=== PATIENT | female | born 1985 | race American Indian/Alaskan Native ===

== ENCOUNTER 2019-02-14 11:52 | Outpatient (CLI) | payer OTHER ==
[2019-02-14 12:41] VITALS: BP 100/57
[2019-02-14 13:05] LABS: Bilirubin,Urine NEG (Negative); Blood,Urine NEG (Negative); Color,Urine Colorless (Yellow); Protein,Urine <15 mg/dL mg/dL (Negative); Urobilinogen,Urine < 2.0 mg/dL (<2.0)
== END 2019-02-14 14:43 | disposition home or self-care (01) ==
LOC: TRG 11:52
PROVIDERS: ATTEND Obstetrics & Gynecology
DX: O47.02 False labor before 37 completed weeks of gestation, second trimester (principal); Z3A.26 26 weeks gestation of pregnancy
CPT/HCPCS: 81001

== ENCOUNTER 2019-03-19 12:07 | Outpatient (CLI) | payer OTHER ==
[2019-03-19] MEDS ORDERED: LACTATED RINGERS 500 ML IV ONE (12:16)
[2019-03-19] MEDS ORDERED: LACTATED RINGERS 1,000 ML IV ONE (12:18)
[2019-03-19 13:18] VITALS: BP 99/56
[2019-03-19 13:54] LABS: Bacteria,Urine 1+ /HPF (Negative); Bilirubin,Urine NEG (Negative); Blood,Urine NEG (Negative); Color,Urine Colorless (Yellow); Protein,Urine <15 mg/dL mg/dL (Negative); Urobilinogen,Urine < 2.0 mg/dL (<2.0)
== END 2019-03-19 15:05 | disposition home or self-care (01) ==
LOC: TRG 12:07
PROVIDERS: ATTEND Obstetrics & Gynecology
DX: O62.9 Abnormality of forces of labor, unspecified (principal); O09.523 Supervision of elderly multigravida, third trimester; Z3A.31 31 weeks gestation of pregnancy
CPT/HCPCS: 81001; 87086; 96360; J7120

== ENCOUNTER 2019-05-10 06:57 | Inpatient (IN) | payer OTHER ==
[2019-05-10] MEDS ORDERED: ePHEDrine SULFATE 50 MG/1 ML INJ IV PRN (07:30)
[2019-05-10] MEDS ORDERED: TERBUTALINE 1 MG/1 ML INJ SUB-Q PRN (07:30)
[2019-05-10] MEDS ORDERED: LIDOCAINE (2%) 20 MG/1 ML VIAL 20 ML MDV INFILTRATI NR (07:30)
[2019-05-10] MEDS ORDERED: fentaNYL 100 MCG/2 ML INJ IV PRN (07:30)
[2019-05-10] MEDS ORDERED: TERBUTALINE 1 MG/1 ML INJ IVP PRN (07:30)
[2019-05-10] MEDS ORDERED: BUTORPHANOL 2 MG/1 ML INJ IV PRN (07:30)
--- NOTE | 2019-05-10 07:46 | History and Physical Report ---
History of Present Illness Date of examination: 05/10/19 Chief complaint: SROM at 530a History of present illness: Past History : 6 Term Births: 3 Premature Births: 0 Living Children: 3 Para: 3 Mult. Births: 0 Prev : 0 Prev. attempt? none Aborta: 2 Elect. Ab: 0 Spont. Ab: 2 Ectopics: 0 # 1 Delivery date: 06/12/2008 Weeks Gestation: 39 Delivery type: Hours of labor: 25 Anesthesia type: epidural Delivery location: [facility] Sex: Female weight: [id number] Name: Naiila # 2 Delivery date: 05/06/2010 Delivery type: SAB # 3 Delivery date: 03/31/2011 Delivery type: Vaginal Delivery location: [facility] Sex: female weight: 6.19 Name: franck Comments: none # 4 Delivery date: 11/02/2011 Weeks Gestation: 4 Delivery type: SAB Delivery location: [facility] # 5 Delivery date: 06/28/2014 Weeks Gestation: 40 Delivery type: Vaginal Delivery location: [facility] Infant Sex: female weight: 6.63 Past Medical History: Reviewed history from 09/19/2011 and no changes required: Recurrent Bartholins cyst Past Surgical History: Reviewed history from 09/19/2011 and no changes required: negative Past Medical History Abnormal PAP: negative HAYDE Exposure: negative Infertility: negative Uterine Anomaly: negative Uterine Surgery (not C/S): negative Other Gynecologic Problems: negative Family Hx: Family History of Hypertension- mother No Family History of Breast Cancer No Family History of Colon Cancer No Family History of Ovarvian Cancer No Family History of DVT/PE on OCP No Family History of Diabetes 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 of genital herpes: no Partner hx. of genital herpes: no Rash, Viral, or Febrile illness since last LMP? no Varicella/Chicken Pox Status: Previous Disease TB Risk: no Genetic History ADVANCED MATERNAL AGE Congenital Heart Defect: Mom: no Dad: no Maggi Disease: Mom: no Dad: no Thalassemia Mom: no Dad: no Neural Tube Defect Mom: no Dad: no Down's Syndrome Mom: no Dad: no Alfredo-Sachs Mom: no Dad: no Sickle Cell Disease/Trait Mom: yes Dad: no Comments: two children with trait Hemophilia Mom: no Dad: no Muscular Dystrophy Mom: no Dad: no Cystic Fibrosis Mom: no Dad: no [place] Chorea Mom: no Dad: no Mental Retardation Mom: no Dad: no Fragile X Mom: no Dad: no Other Genetic/Chromosomal Disorder Mom: no Dad: no Child w/other defect Mom: no Dad: no Enviromental Exposures Enviromental Exposures Reviewed Xray Exposure: no Medication, drug, or alcohol use since LMP: no Chemical/Other Exposure: no Exposure to Cat Liter: no Hx of Parvovirus (Fifth Disease): no Occupational Exposure to Children: none Active Medications (reviewed today): None Current Allergies (reviewed today): No known allergies Past History - Obstetrical History Expected Date of Delivery: 05/18/19 Actual Gestation: 38 Week(s) 6 Day(s) : 6 Medications and Allergies Allergies Allergy/AdvReac Type Severity Reaction Status Date / Time No Known Allergies Allergy Verified 02/14/19 11:58 Home Medications Medication Instructions Recorded Confirmed Last Taken Type No Known Home Medications [No 06/28/14 06/28/14 Unknown History Reported Home Medications] Active Meds: Active Medications Butorphanol Tartrate (Stadol) 2 mg IV Q2H PRN PRN Reason: Pain , Severe (7-10) Ephedrine Sulfate (Ephedrine Sulfate) 10 mg IV Q2M PRN PRN Reason: Hypotension Fentanyl (Sublimaze) 100 mcg IV Q2H PRN PRN Reason: Labor Pain Oxytocin/Sodium Chloride (Pitocin/Ns 20 Unit/1000ml Drip) 20 units in 1,000 mls @ 125 mls/hr IV DIRECT STU Oxytocin/Sodium Chloride (Pitocin/Ns 30 Unit/500ml) 30 units in 500 mls @ 1 mls/hr IV TITR STU; Protocol Oxytocin/Sodium Chloride (Pitocin/Ns 30 Unit/500ml) 30 units in 500 mls @ 4 mls/hr IV TITR STU; Protocol Lactated Ringer's (Lactated Ringers) 1,000 mls @ 125 mls/hr IV DIRECT STU Lidocaine (Xylocaine 2%) 20 ml INFILTRATI ONCE NR Stop: 05/10/19 13:00 Mineral Oil (Mineral Oil) 30 ml PO QHS PRN PRN Reason: Constipation Terbutaline Sulfate (Brethine) 0.25 mg SUB-Q ONCE PRN PRN Reason: Hyperstimulation/Hypertonicity Terbutaline Sulfate (Brethine) 0.25 mg IVP ONCE PRN PRN Reason: Hyperstimulation/Hypertonicity Review of Systems All systems: negative Genitourinary: leakage of fluid - Vital Signs Vital signs: Vital Signs Pulse BP 78 113/74 05/10/19 07:24 05/10/19 07:24 Temp Pulse Resp BP Pulse Ox 78 113/74 05/10/19 07:24 05/10/19 07:24 - Physical Exam Breasts: Positive: deferred Lungs: Positive: Normal air movement Abdomen: Positive: normal appearance, soft. Negative: tenderness Genitourinary (Female): Positive: normal external genitalia, normal perenium Vulva: both: normal Vagina: Positive: normal moisture, other (+pool per SSE) Extremities: Positive: normal. Negative: tenderness - Obstetrical FHR: category 2 FHR comments: suspicious decels Uterine Contraction Monitor Mode: External Cervical Dilatation: 2 Cervical Effacement Percentage: 30 station: -3 post soft, vtx Uterine Contraction Pattern: Irregular Results All other labs normal. Assessment and Plan - Patient Problems (1) 38 weeks gestation of Current Visit: Yes Status: Acute (2) SROM (spontaneous rupture of membranes) Current Visit: Yes Status: Acute Plan to address problem: Close observation, IVF hydration, pitocin if FHT's improve
[2019-05-10] MEDS ORDERED: OXYTOCIN DRIP 30 UNITS/500 ML BAG IV SCH ×2 (08:00)
[2019-05-10] MEDS ORDERED: OXYTOCIN 20 UNIT/1000ML DRIP 20 UNITS/1,000 ML BAG IV SCH ×3 (08:00→18:05)
[2019-05-10] MEDS ORDERED: LACTATED RINGERS 1,000 ML IV SCH ×2 (08:00→16:00)
[2019-05-10 08:22] LABS: Hematocrit 36.2 % (30.3-42.9); Hemoglobin 12.1 gm/dl (10.1-14.3); Mean Corpuscular HGB Conc 34 % (30-34); Mean Corpuscular Volume 84 fl (79-97); Platelet Count 167 K/mm3 (140-440); Red Blood Count 4.33 M/mm3 (3.65-5.03); Red Cell Distribution Width 17.2 % (13.2-15.2)
[2019-05-10] MEDS ORDERED: NITRAZINE (URINE TESTING PAPER) MC ONE (08:30)
[2019-05-10] MEDS ORDERED: SODIUM CHLORIDE 0.9% 1000 ML 1,000 ML IV ONE (13:00)
[2019-05-10] MEDS ORDERED: SODIUM CHLORIDE 0.9% 1000 ML 1,000 ML ONE (13:43)
--- NOTE | 2019-05-10 13:49 | Progress Note ---
Assessment and Plan - Patient Problems (1) 38 weeks gestation of Current Visit: Yes Status: Acute (2) SROM (spontaneous rupture of membranes) Current Visit: Yes Status: Acute Plan to address problem: Start amnioinfusion and observe closely Subjective - Subjective Date of service: 05/10/19 Interval history: Past History : 6 Term Births: 3 Premature Births: 0 Living Children: 3 Para: 3 Mult. Births: 0 Prev : 0 Prev. attempt? none Aborta: 2 Elect. Ab: 0 Spont. Ab: 2 Ectopics: 0 # 1 Delivery date: 06/12/2008 Weeks Gestation: 39 Delivery type: Hours of labor: 25 Anesthesia type: epidural Delivery location: [facility] Infant Sex: Female weight: [id number] Name: Naiila # 2 Delivery date: 05/06/2010 Delivery type: SAB # 3 Delivery date: 03/31/2011 Delivery type: Vaginal Delivery location: [facility] Sex: female weight: 6.19 Name: franck Comments: none # 4 Delivery date: 11/02/2011 Weeks Gestation: 4 Delivery type: SAB Delivery location: [facility] # 5 Delivery date: 06/28/2014 Weeks Gestation: 40 Delivery type: Vaginal Delivery location: [facility] Infant Sex: female weight: 6.63 Past Medical History: Reviewed history from 09/19/2011 and no changes required: Recurrent Bartholins cyst Past Surgical History: Reviewed history from 09/19/2011 and no changes required: negative Past Medical History Abnormal PAP: negative HAYDE Exposure: negative Infertility: negative Uterine Anomaly: negative Uterine Surgery (not C/S): negative Other Gynecologic Problems: negative Family Hx: Family History of Hypertension- mother No Family History of Breast Cancer No Family History of Colon Cancer No Family History of Ovarvian Cancer No Family History of DVT/PE on OCP No Family History of Diabetes 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 of genital herpes: no Partner hx. of genital herpes: no Rash, Viral, or Febrile illness since last LMP? no Varicella/Chicken Pox Status: Previous Disease TB Risk: no Genetic History ADVANCED MATERNAL AGE Congenital Heart Defect: Mom: no Dad: no Maggi Disease: Mom: no Dad: no Thalassemia Mom: no Dad: no Neural Tube Defect Mom: no Dad: no Down's Syndrome Mom: no Dad: no Alfredo-Sachs Mom: no Dad: no Sickle Cell Disease/Trait Mom: yes Dad: no Comments: two children with trait Hemophilia Mom: no Dad: no Muscular Dystrophy Mom: no Dad: no Cystic Fibrosis Mom: no Dad: no [place] Chorea Mom: no Dad: no Mental Retardation Mom: no Dad: no Fragile X Mom: no Dad: no Other Genetic/Chromosomal Disorder Mom: no Dad: no Child w/other defect Mom: no Dad: no Enviromental Exposures Enviromental Exposures Reviewed Xray Exposure: no Medication, drug, or alcohol use since LMP: no Chemical/Other Exposure: no Exposure to Cat Liter: no Hx of Parvovirus (Fifth Disease): no Occupational Exposure to Children: none Active Medications (reviewed today): None Current Allergies (reviewed today): No known allergies Patient reports: movement normal, contractions Objective - Vital Signs Vital Signs: Vital Signs - 12hr 05/10/19 05/10/19 05/10/19 07:24 07:48 10:01 Temperature 98.1 F Pulse Rate 78 78 67 Respiratory 16 Rate Blood Pressure 113/74 Blood Pressure 113/74 [Left] O2 Sat by Pulse 100 Oximetry 05/10/19 05/10/19 05/10/19 10:02 10:06 10:09 Temperature Pulse Rate 71 78 86 Respiratory Rate Blood Pressure 97/53 Blood Pressure [Left] O2 Sat by Pulse 82 L 100 Oximetry 05/10/19 05/10/19 05/10/19 10:11 10:16 10:21 Temperature Pulse Rate 82 75 72 Respiratory Rate Blood Pressure Blood Pressure [Left] O2 Sat by Pulse 100 100 100 Oximetry 05/10/19 05/10/19 05/10/19 10:26 10:31 10:36 Temperature Pulse Rate 64 77 66 Respiratory Rate Blood Pressure Blood Pressure [Left] O2 Sat by Pulse 100 100 100 Oximetry 05/10/19 05/10/19 05/10/19 10:41 10:45 10:50 Temperature Pulse Rate 65 72 94 H Respiratory Rate Blood Pressure Blood Pressure [Left] O2 Sat by Pulse 100 100 100 Oximetry 05/10/19 05/10/19 05/10/19 10:56 11:01 11:14 Temperature Pulse Rate 72 70 78 Respiratory Rate Blood Pressure Blood Pressure [Left] O2 Sat by Pulse 100 100 99 Oximetry 05/10/19 05/10/19 05/10/19 11:19 11:24 11:29 Temperature Pulse Rate 73 73 74 Respiratory Rate Blood Pressure Blood Pressure [Left] O2 Sat by Pulse 100 100 100 Oximetry 05/10/19 05/10/19 05/10/19 11:34 11:39 11:44 Temperature Pulse Rate 68 72 76 Respiratory Rate Blood Pressure Blood Pressure [Left] O2 Sat by Pulse 100 100 100 Oximetry 05/10/19 05/10/19 05/10/19 11:49 11:54 11:58 Temperature Pulse Rate 91 H 88 64 Respiratory Rate Blood Pressure Blood Pressure [Left] O2 Sat by Pulse 100 99 99 Oximetry 05/10/19 05/10/19 05/10/19 12:03 12:08 12:13 Temperature Pulse Rate 77 78 78 Respiratory Rate Blood Pressure Blood Pressure [Left] O2 Sat by Pulse 100 98 99 Oximetry 05/10/19 05/10/19 05/10/19 12:18 12:24 12:29 Temperature Pulse Rate 80 75 70 Respiratory Rate Blood Pressure Blood Pressure [Left] O2 Sat by Pulse 99 100 100 Oximetry 05/10/19 05/10/19 05/10/19 12:33 12:38 12:44 Temperature Pulse Rate 77 69 68 Respiratory Rate Blood Pressure Blood Pressure [Left] O2 Sat by Pulse 99 100 100 Oximetry 05/10/19 05/10/19 05/10/19 12:48 12:54 12:57 Temperature Pulse Rate 72 81 Respiratory Rate Blood Pressure Blood Pressure [Left] O2 Sat by Pulse 100 98 83 L Oximetry 05/10/19 05/10/19 05/10/19 12:59 13:03 13:08 Temperature Pulse Rate 77 74 78 Respiratory Rate Blood Pressure Blood Pressure [Left] O2 Sat by Pulse 99 100 99 Oximetry 05/10/19 05/10/19 05/10/19 13:13 13:18 13:23 Temperature Pulse Rate 80 80 69 Respiratory Rate Blood Pressure Blood Pressure [Left] O2 Sat by Pulse 100 100 100 Oximetry 05/10/19 05/10/19 05/10/19 13:28 13:33 13:38 Temperature Pulse Rate 71 74 67 Respiratory Rate Blood Pressure Blood Pressure [Left] O2 Sat by Pulse 99 99 100 Oximetry 05/10/19 13:43 Temperature Pulse Rate 66 Respiratory Rate Blood Pressure Blood Pressure [Left] O2 Sat by Pulse 100 Oximetry - Exam Breasts: deferred Cardiovascular: Regular rate Lungs: Normal air movement Abdomen: Present: soft. Absent: tenderness Vulva: both: normal Uterus: Present: fundal height above umbilicus. Absent: tenderness FHR: category 2 FHR comments: ISE and IUPC placed w/o difficulty, variables now noted, Uterine Contraction Monitor Mode: Internal Cervical Dilatation: 5 Cervical Effacement Percentage: 50 station: -2 Uterine Contraction Pattern: Regular Extremities: normal - Labs Labs: Abnormal Labs 05/10/19 08:00 RDW 17.2 H Laboratory Results - last 24 hr 05/10/19 05/10/19 05/10/19 08:00 08:00 08:00 WBC 7.0 RBC 4.33 Hgb 12.1 Hct 36.2 MCV 84 MCH 28 MCHC 34 RDW 17.2 H Plt Count 167 RPR Nonreactive Blood Type O POSITIVE Antibody Screen Negative
[2019-05-10] MEDS ORDERED: SODIUM CHLORIDE 0.9% IRR 500 ML BOTTLE IR ONE (13:51)
[2019-05-10] MEDS ORDERED: BUPIVACAINE/PF (0.25%) 2.5 MG/ML 10 ML VIAL INFILTRATI ONE (14:10)
[2019-05-10] MEDS ORDERED: ceFAZolin 1 GM VIAL ONE (14:30)
[2019-05-10] MEDS ORDERED: ePHEDrine SULFATE 50 MG/1 ML INJ ONE (14:31)
[2019-05-10] MEDS ORDERED: SODIUM CHLORIDE 0.9% IRR 1,500 ML BOTTLE IR ONE (14:35)
[2019-05-10] MEDS ORDERED: WATER FOR IRRIG STERILE 1,500 ML BOTTLE IR ONE (14:35)
[2019-05-10] MEDS ORDERED: ONDANSETRON 4 MG/2 ML INJ ONE (15:04)
[2019-05-10] MEDS ORDERED: METOCLOPRAMIDE 10 MG/2 ML INJ ONE (15:04)
[2019-05-10] MEDS ORDERED: OXYTOCIN 10 UNIT/1 ML INJ ONE (15:04)
[2019-05-10] MEDS ORDERED: diphenhydrAMINE 50 MG/ML VIAL ONE (15:05)
[2019-05-10] MEDS ORDERED: KETOROLAC 30 MG/1 ML INJ ONE (15:05)
[2019-05-10] MEDS ORDERED: HYDROmorphone 1 MG/1 ML INJ ONE (15:06)
[2019-05-10] MEDS ORDERED: LACTATED RINGERS 1,000 ML ONE (15:24)
[2019-05-10] MEDS ORDERED: BICITRA ORAL LIQD 30ML PO ONE (15:40)
[2019-05-10] MEDS ORDERED: METOCLOPRAMIDE 10 MG/2 ML INJ IV ONE (15:40)
[2019-05-10] MEDS ORDERED: FAMOTIDINE 20 MG/2 ML INJ IV ONE ×2 (15:40→15:41)
[2019-05-10] MEDS ORDERED: BICITRA ORAL LIQD 30ML ONE (15:41)
[2019-05-10] MEDS ORDERED: ceFAZolin/Water 2 GM/20 ML 2 GM/20 ML SYRINGE IV NR (16:00)
[2019-05-10] MEDS ORDERED: ONDANSETRON 4 MG/2 ML INJ IV PRN (16:29)
[2019-05-10] MEDS ORDERED: HYDROmorphone 1 MG/1 ML INJ IV PRN (16:29)
[2019-05-10] MEDS ORDERED: NALOXONE 0.4 MG/1 ML INJ IV PRN ×2 (16:29→18:05)
[2019-05-10] MEDS ORDERED: PROMETHAZINE 25 MG RECT SUPP PR PRN (16:29)
[2019-05-10] MEDS ORDERED: PROMETHAZINE 25 MG TAB PO PRN (16:29)
--- NOTE | 2019-05-10 16:31 | Anesthesia Day of Surgery ---
Anesthesia Day of Surgery - Day of Surgery Patient Examined: Yes Patient H&P Reviewed: Yes Patient is NPO: Yes
--- NOTE | 2019-05-10 16:32 | Anesthesia Consultation ---
Anesthesia Consult and Med Hx Date of service: 05/10/19 - Airway Anesthetic Teeth Evaluation: Good ROM Head & Neck: Adequate Mental/Hyoid Distance: Adequate Mallampati Class: Class II Intubation Access Assessment: Good - Pulmonary Exam CTA: Yes - Cardiac Exam Cardiac Exam: RRR - Pre-Operative Health Status ASA Pre-Surgery Classification: ASA2, Emergency Proposed Anesthetic Plan: Epidural, Spinal - Pulmonary Hx Asthma: No COPD: No Hx Pneumonia: No - Cardiovascular System Hx Hypertension: No - Central Nervous System Hx Seizures: No Hx Psychiatric Problems: No - Endocrine Hx Renal Disease: No Hx End Stage Renal Disease: No Hx Hypothyroidism: No Hx Hyperthyroidism: No - Hematic Hx Anemia: No Hx Sickle Cell Disease: No - Other Systems Hx Alcohol Use: No
--- NOTE | 2019-05-10 16:32 | Anesthesia Day of Surgery ---
Anesthesia Day of Surgery - Day of Surgery Patient Examined: Yes Patient H&P Reviewed: Yes Patient is NPO: Yes
--- NOTE | 2019-05-10 16:33 | Post Anesthesia Evaluation ---
- Post Anesthesia Evaluation Patient Participated: Yes Airway Patent: Yes Stable Respiratory Function: Yes Nausea/Vomiting: No Temp > 96.8F: Yes Pain Manageable: No Adequeate Hydration: Yes Anesthesia Complications: No Block Receding Appropriately: Yes Patient on Ventilator: No
[2019-05-10] MEDS: HYDROmorphone 1 MG/1 ML INJ IV PRN ×2 (16:43→17:00)
[2019-05-10] MEDS ORDERED: fentaNYL-BUPIV 2 MCG/ML-0.125% 200 MCG/100 ML BAG EPIDURAL SCH (17:00)
[2019-05-10] MEDS ORDERED: MORPHINE 2 MG/1 ML INJ IV PRN (18:05)
[2019-05-10] MEDS ORDERED: FLU VACC QUAD 2019-20 (3 YR UP)/PF 60 MCG/0.5 ML SYRINGE IM ONE (18:05)
[2019-05-10] MEDS ORDERED: LANOLIN/ZINC/DIMETHICONE (LANSINOH) 7 GM TP PRN (18:05)
[2019-05-10] MEDS ORDERED: WITCH HAZEL/ GLYCERIN PAD TP PRN (18:05)
[2019-05-10] MEDS ORDERED: D5W/LACTATED RINGERS 1,000 ML IV SCH (18:05)
[2019-05-10] MEDS: KETOROLAC 30 MG/1 ML INJ IV SCH (20:07)
[2019-05-10] MEDS: ceFAZolin/NS 1 GM/50 ML 1 GM/50 ML BAG IV SCH (20:09)
[2019-05-10] MEDS ORDERED: MINERAL OIL 30 ML ORAL LIQD PO PRN (22:00)
[2019-05-10] MEDS: MORPHINE 4 MG/1 ML INJ IV PRN (23:29)
--- NOTE | 2019-05-11 01:42 | Operative Report ---
PREOPERATIVE DIAGNOSES: Intrauterine at 38 weeks, nonreassuring heart rate tracing, spontaneous rupture of membranes, desires sterilization. POSTOPERATIVE DIAGNOSES: Intrauterine at 38 weeks, nonreassuring heart rate tracing, spontaneous rupture of membranes, desires sterilization. PROCEDURES: 1. Primary low transverse section. 2. Bilateral tubal ligation, modified Yue. SURGEON: Kenzie Mahoney MD NEUROLOGY DIRECTOR: ____, HEENA. ANESTHESIA: Spinal, epidural. COMPLICATIONS: None. ESTIMATED BLOOD LOSS: 800 mL. FINDINGS: Liveborn male infant, weight 6 pounds 11 ounces, Apgars 8 at 1 minute and 9 at 5 minutes, nuchal cord as well as body cord involving the foot. DESCRIPTION OF PROCEDURE: After risks, benefits, complications, consequence and alternatives to the procedure were discussed with the patient, she voiced understanding and desired to proceed. She was taken to the OR where spinal anesthesia was bolused. She was placed in the left lateral tilt position and prepped and draped in the usual sterile fashion. Once an appropriate level of timeout was performed, once an appropriate level of anesthesia was noted, a Pfannenstiel incision was made into the fascia, which was incised and extended in lateral direction. The overlying fascia was sharply dissected away from the underlying rectus muscle in superior and inferior direction. Midline was entered bluntly. The vesicouterine fold was incised with blunt dissection. Bladder flap was created. A transverse incision was made in the lower uterine segment and extended in a superolateral direction with finger fractionation. A small amount of clear fluid was noted. Infant was delivered from the cephalic position with spontaneous cry and excellent tone. Cord was doubly clamped and cut and the was given to the resuscitation team present. Placenta was manually extracted. The uterus was exteriorized and cleaned of any further products of conception or placental tissue. The incision was reapproximated using 0 Vicryl in a running interlocking stitch followed by further suture of 0 Vicryl in an imbricating fashion. Once hemostasis was noted, attention was turned to the adnexa. Once confirmation was obtained from the patient to proceed with sterilization, the right tube was grasped with a Sara clamp and elevated at the ampullary region. This loop of tube was doubly ligated and excised. Same procedure was performed on the left tube with hemostasis was noted. The uterus was allowed back in the pelvic cavity. The pelvis was irrigated with warm normal saline. Attention was turned to the segment of tube excised. Hemostasis was noted. Attention was then turned to the lower uterine segment where hemostasis was noted. Surgicel was placed as well as Interceed. Once hemostasis was noted, the rectus muscles were approximated using 0 Vicryl and interrupted 0 Vicryl x 4. Once hemostasis was noted, the fascia was reapproximated using 0 Vicryl in a simple running stitch. Once hemostasis was noted, the skin was reapproximated using 4-0 Vicryl in a subcuticular manner. The patient tolerated the procedure well and was taken to recovery room in stable condition. JOB# [id number] FRITZ/LEONARD
[2019-05-11] MEDS: KETOROLAC 30 MG/1 ML INJ IV SCH ×3 (02:09→18:23)
[2019-05-11] MEDS ORDERED: ceFAZolin/NS 1 GM/50 ML 1 GM/50 ML BAG IV SCH (04:00)
[2019-05-11] MEDS: ceFAZolin/NS 1 GM/50 ML 1 GM/50 ML BAG IV SCH (04:16)
[2019-05-11] MEDS: MORPHINE 4 MG/1 ML INJ IV PRN ×2 (05:39→22:18)
[2019-05-11 05:40] LABS: Hematocrit 26.6 % (30.3-42.9); Hemoglobin 8.9 gm/dl (10.1-14.3)
--- NOTE | 2019-05-11 10:15 | Progress Note ---
Assessment and Plan pt doing well, c/o pain when moving mostly on right side. VSSAF, H&H 8.9/26.6 anemia d/t acute blood loss, asymptomatic. lochia scant, fundus firm, dressing D&I. - Patient Problems (1) Anemia associated with acute blood loss Current Visit: Yes Status: Acute Plan to address problem: FE supplementation cont PNV (2) delivery delivered Current Visit: Yes Status: Acute Plan to address problem: continue postop pathway ISS encouraged advance in diet and activity as tolerated rn to remove dressing after shower this evening Subjective - Subjective Date of service: 05/11/19 Principal diagnosis: postop day #1 s/p primary c/s with tubal ligation Patient reports: appetite normal, pain well controlled, flatus, ambulating normally, no dizzy ambulation, no nauseated Brandon: doing well, nursing well Objective - Vital Signs Latest vital signs: Vital Signs Temp Pulse Resp BP BP Pulse Ox 05/11/19 07:50 98.7 F 90 20 101/63 101/63 97 05/11/19 06:09 18 05/11/19 05:39 18 05/11/19 05:08 98.4 F 86 20 91/47 94 05/11/19 02:39 18 05/11/19 00:37 97.9 F 82 18 93/51 97 05/10/19 23:59 18 05/10/19 23:29 20 05/10/19 20:37 18 05/10/19 20:36 97.4 F L 85 18 110/60 99 05/10/19 20:07 18 05/10/19 19:21 18 05/10/19 17:30 98.1 F 73 20 112/68 100 05/10/19 17:00 85 19 112/68 100 05/10/19 16:30 80 21 111/65 100 05/10/19 16:15 72 22 104/58 100 05/10/19 16:00 75 19 108/64 100 05/10/19 15:45 71 16 106/63 100 05/10/19 15:35 73 22 108/61 100 05/10/19 15:30 97.8 F 76 18 104/58 100 05/10/19 14:19 86 100 05/10/19 14:17 78 140/85 10/04/19 14:15 88 136/83 05/10/19 14:14 89 100 05/10/19 14:09 74 100 05/10/19 14:04 82 100 05/10/19 13:59 72 100 05/10/19 13:53 90 100 05/10/19 13:48 83 100 05/10/19 13:43 66 100 05/10/19 13:38 67 100 05/10/19 13:33 74 99 05/10/19 13:28 71 99 05/10/19 13:23 69 100 05/10/19 13:18 80 100 05/10/19 13:13 80 100 05/10/19 13:08 78 99 05/10/19 13:03 74 100 05/10/19 12:59 77 99 05/10/19 12:57 83 L 05/10/19 12:54 81 98 05/10/19 12:48 72 100 05/10/19 12:44 68 100 05/10/19 12:38 69 100 05/10/19 12:33 77 99 05/10/19 12:29 70 100 05/10/19 12:24 75 100 05/10/19 12:18 80 99 05/10/19 12:13 78 99 05/10/19 12:08 78 98 05/10/19 12:03 77 100 05/10/19 11:58 64 99 05/10/19 11:54 88 99 05/10/19 11:49 91 H 100 05/10/19 11:44 76 100 05/10/19 11:39 72 100 05/10/19 11:34 68 100 05/10/19 11:29 74 100 05/10/19 11:24 73 100 05/10/19 11:19 73 100 05/10/19 11:14 78 99 05/10/19 11:01 70 100 05/10/19 10:56 72 100 05/10/19 10:50 94 H 100 05/10/19 10:45 72 100 05/10/19 10:41 65 100 05/10/19 10:36 66 100 05/10/19 10:31 77 100 05/10/19 10:26 64 100 05/10/19 10:21 72 100 05/10/19 10:16 75 100 Intake and Output 05/10/19 05/11/19 05/11/19 23:59 07:59 15:59 Intake Total 490 360 Output Total 600 900 Balance -110 -540 Intake: IV 250 ANCEF/NS 1 GM/50 ML 1 gm 50 In 50 ml @ 100 mls/hr IV Q8H [facility] Rx#:[id number] Intake, Free Water 240 360 Output: Urine 600 900 Indwelling Catheter 900 Uretheral ([place]) 300 Other: Total, Output Amount 600 Estimated Blood Loss 800 - Exam Breasts: Present: normal, Cardiovascular: Present: Regular rate Lungs: Present: Clear to auscultation, Normal air movement Abdomen: Present: normal appearance, soft. Absent: distention, tenderness Vulva: both: normal Uterus: Present: normal, firm, fundal height at umbilicus Extremities: Present: normal Deep Tendon Reflex Grade: Normal +2 Incision: Present: normal, dry, dressed - Labs Labs: Abnormal lab results 05/11/19 Range/Units 04:02 Hgb 8.9 L D (10.1-14.3) gm/dl Hct 26.6 L D (30.3-42.9) %
[2019-05-11] MEDS ORDERED: TETANUS,DIPH,PERTUSS(ACELL) VACCINE 0.5 ML SYRINGE IM ONE (15:21)
[2019-05-11] MEDS: PRENATAL VIT27-FE FUMARATE-FOLIC ACID VIT TAB PO SCH (18:29)
[2019-05-11] MEDS: FERROUS SULFATE 325 MG TAB PO SCH (22:17)
[2019-05-12] MEDS: IBUPROFEN 800 MG TAB PO PRN ×4 (00:31→18:00)
[2019-05-12] MEDS: PRENATAL VIT27-FE FUMARATE-FOLIC ACID VIT TAB PO SCH (09:47)
[2019-05-12] MEDS: FERROUS SULFATE 325 MG TAB PO SCH ×2 (09:47→21:30)
--- NOTE | 2019-05-12 13:55 | Progress Note ---
Assessment and Plan patient resting, c/o incision pain with rising and walking. Pt encouraged to use pain medication as needed and to request medication from RN if pain is not well controlled. incision D&I. feeding well. pt requesting d/c home tomorrow. - Patient Problems (1) Anemia associated with acute blood loss Current Visit: Yes Status: Acute Plan to address problem: continue with FE and PNV monitor blood loss (2) delivery delivered Current Visit: Yes Status: Acute Plan to address problem: continue postop pathway anticipate d/c home tomorrow Subjective - Subjective Date of service: 05/12/19 Principal diagnosis: postop day #2 s/p primary c/s with tubal ligation Patient reports: appetite normal, voiding normally, pain well controlled, flatus, ambulating normally, no dizzy ambulation, no nauseated : doing well, nursing well Objective - Vital Signs Latest vital signs: Vital Signs Temp Pulse Resp BP Pulse Ox 05/12/19 07:40 98.3 F 82 18 98/62 98 05/11/19 23:27 98.9 F 100 H 20 101/54 97 05/11/19 15:58 98.7 F 100 H 20 97/54 100 Intake and Output 05/11/19 05/12/19 05/12/19 23:59 07:59 15:59 Intake Total 120 120 Output Total 600 Balance -480 120 Intake: Oral 120 Intake, Free Water 120 Output: Urine 600 Indwelling Catheter 300 Void 300 Other: Total, Intake Amount 120 Total, Output Amount 300 # Voids Void 1 1 - Exam Breasts: Present: normal, Cardiovascular: Present: Regular rate Lungs: Present: Clear to auscultation, Normal air movement Abdomen: Present: normal appearance, soft Vulva: both: normal Uterus: Present: normal, firm, fundal height at umbilicus Extremities: Present: normal Deep Tendon Reflex Grade: Normal +2 Incision: Present: normal, dry, intact
[2019-05-12] MEDS: MORPHINE 4 MG/1 ML INJ IV PRN (14:35)
[2019-05-12] MEDS: HYDROcodone/ACETAMINOPHEN 5-325 MG TAB PO PRN (19:50)
[2019-05-13] MEDS: IBUPROFEN 800 MG TAB PO PRN ×3 (00:28→12:07)
[2019-05-13] MEDS: HYDROcodone/ACETAMINOPHEN 5-325 MG TAB PO PRN ×3 (02:19→13:59)
--- NOTE | 2019-05-13 08:58 | Discharge Summary ---
Providers - Providers Date of Admission: 05/10/19 09:51 Date of discharge: 05/13/19 Attending physician: LILY ROOT 05/10/19 18:05 Consult to Split Leather Mosser [CONS] Routine Reason For Exam: Primary care physician: LILY ROOT Hospitalization Reason for admission: srom Condition: Good Pertinent studies: post delivery H&H 8.9/26.6, acute anemia from blood loss at delivery, patient is asymptomatic, Fe ordered Procedures: Primary c/s for intolerance to labor Hospital course: uncomplicated c/s and course Disposition: DC-01 TO HOME OR SELFCARE Core Measure Documentation - Palliative Care Palliative Care/ Comfort Measures: Not Applicable - Core Measures Any of the following diagnoses?: none Exam - Constitutional Vitals: Temp Pulse Resp BP Pulse Ox 98.4 F 98 H 18 101/62 100 05/13/19 00:25 05/13/19 00:25 05/13/19 06:59 05/13/19 00:25 05/13/19 00:25 General appearance: Present: no acute distress, well-nourished - EENT Eyes: Present: PERRL ENT: hearing intact, clear oral mucosa - Neck Neck: Present: supple, normal ROM - Respiratory Respiratory effort: normal Respiratory: bilateral: CTA - Cardiovascular Heart Sounds: Present: S1 & S2. Absent: rub, click - Extremities Extremities: pulses symmetrical, No edema Peripheral Pulses: within normal limits - Abdominal General gastrointestinal: Present: soft, non-tender, non-distended, normal bowel sounds Female genitourinary: Present: normal - Integumentary Integumentary: Present: clear, warm, dry - Musculoskeletal Musculoskeletal: gait normal, strength equal bilaterally - Psychiatric Psychiatric: appropriate mood/affect, intact judgment & insight - Neurologic Neurologic: CNII-XII intact, moves all extremities - Additional findings Additional findings: FF, ML, U/2, vaginal bleeding is small, patient denies any heavy bleeding or clots. Patient reports pain is well controlled. Incision is well approximated, healing well, no bleeding or drainage noted, no s/s infection. Encouraged pt to continue ambulation and use of IS, increase water intake. She denies any dizziness or feeling faint with ambulation or position changes. Plan Activity: advance as tolerated Diet: regular Wound: open to air, keep clean and dry Follow up with: LILY ROOT MD [Primary Care Provider] - 7 Days (Congratulations! Please call [phone] to schedule your post op incision check appointment in 1 week. Schedule your son's circumcision appointment in 1 week. Bring EMLA cream with you to his appointment. Call with any questions or concerns. ) Prescriptions: Docusate Sodium [Colace] 100 mg PO BID PRN #60 capsule PRN Reason: Constipation Lidocain2.5%/Prilocai2.5% [Emla] 5 gm TP ONCE #1 tube Ferrous Sulfate [Feosol 325 MG tab] 325 mg PO BID #60 tablet Ibuprofen [Motrin 800 MG tab] 800 mg PO TID PRN #30 tablet PRN Reason: Pain oxyCODONE /ACETAMINOPHEN [Percocet 5/325 mg] 1 - 2 tab PO Q6HR PRN #20 tablet PRN Reason: Pain
[2019-05-13] MEDS: PRENATAL VIT27-FE FUMARATE-FOLIC ACID VIT TAB PO SCH (09:21)
[2019-05-13] MEDS: FERROUS SULFATE 325 MG TAB PO SCH (09:21)
[2019-05-13 16:42] VITALS: BP 104/65
== END 2019-05-13 17:55 | disposition home or self-care (01) | DRG 784 ==
LOC: TRG 06:57 → LD 07:53 → TRG 09:50 → LD 09:51 → OB 18:11
PROVIDERS: ADMIT Obstetrics & Gynecology; ATTEND Obstetrics & Gynecology
PROC: 10D00Z1 Extraction of Products of Conception, Low, Open Approach (ICD-10-PCS; principal; 2019-05-10)
PROC: 0UB70ZZ Excision of Bilateral Fallopian Tubes, Open Approach (ICD-10-PCS; 2019-05-10)
PROC: 3E0E7KZ Introduction of Other Diagnostic Substance into Products of Conception, Via Natural or Artificial Opening (ICD-10-PCS; 2019-05-10)
PROC: 3E0234Z Introduction of Serum, Toxoid and Vaccine into Muscle, Percutaneous Approach (ICD-10-PCS; 2019-05-11)
DX: O76 Abnormality in fetal heart rate and rhythm complicating labor and delivery (principal); D62 Acute posthemorrhagic anemia; O99.02 Anemia complicating childbirth; Z3A.38 38 weeks gestation of pregnancy; Z37.0 Single live birth; Z23 Encounter for immunization; Z82.49 Family history of ischemic heart disease and other diseases of the circulatory system
CPT/HCPCS: 36415; 85014; 85018; 85027; 86592; 86850; 86900; 86901; 88302; 88307; 90686; G0378; A6250; C1765; J0690; J1170; J1200; J1885; J2270; J2405; J2590; J2765; J3010; J7030; J7120; J7121

== ENCOUNTER 2019-05-18 18:46 | Observation (INO) | payer OTHER ==
[2019-05-18] MEDS ORDERED: MAGNESIUM SULFATE 40GM/1000ML 40 GM/1,000 ML BAG IV SCH (19:00)
[2019-05-18] MEDS ORDERED: MAGNESIUM SULFATE 2 GM/50 ML BAG IV ONE (19:00)
[2019-05-18] MEDS ORDERED: LACTATED RINGERS 1,000 ML IV SCH (19:00)
--- NOTE | 2019-05-18 19:00 | History and Physical Report ---
History of Present Illness Date of examination: 05/18/19 Chief complaint: elevated BP's and edema History of present illness: Past History : 6 Term Births: 3 Premature Births: 0 Living Children: 3 Para: 3 Mult. Births: 0 Prev : 0 Prev. attempt? none Aborta: 2 Elect. Ab: 0 Spont. Ab: 2 Ectopics: 0 # 1 Delivery date: 06/12/2008 Weeks Gestation: 39 Delivery type: Hours of labor: 25 Anesthesia type: epidural Delivery location: [facility] Infant Sex: Female weight: [id number] Name: Naiila # 2 Delivery date: 05/06/2010 Delivery type: SAB # 3 Delivery date: 03/31/2011 Delivery type: Vaginal Delivery location: [facility] Sex: female weight: 6.19 Name: franck Comments: none # 4 Delivery date: 11/02/2011 Weeks Gestation: 4 Delivery type: SAB Delivery location: [facility] # 5 Delivery date: 06/28/2014 Weeks Gestation: 40 Delivery type: Vaginal Delivery location: [facility] Sex: female weight: 6.63 # 6 Date of Delivery: 05/10/2019 Delivery Type: Gestation Weeks: 38 Gender: male Weight: 6.69 lbs Comment: NRFHT's Past Medical History: Reviewed history from 09/19/2011 and no changes required: Recurrent Bartholins cyst Past Surgical History: Past Medical History Abnormal PAP: negative HAYDE Exposure: negative Infertility: negative Uterine Anomaly: negative Uterine Surgery (not C/S): negative Other Gynecologic Problems: negative Family Hx: Family History of Hypertension- mother No Family History of Breast Cancer No Family History of Colon Cancer No Family History of Ovarvian Cancer No Family History of DVT/PE on OCP No Family History of Diabetes 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 of genital herpes: no Partner hx. of genital herpes: no Rash, Viral, or Febrile illness since last LMP? no Varicella/Chicken Pox Status: Previous Disease TB Risk: no Genetic History ADVANCED MATERNAL AGE Congenital Heart Defect: Mom: no Dad: no Maggi Disease: Mom: no Dad: no Thalassemia Mom: no Dad: no Neural Tube Defect Mom: no Dad: no Down's Syndrome Mom: no Dad: no Alfredo-Sachs Mom: no Dad: no Sickle Cell Disease/Trait Mom: yes Dad: no Comments: two children with trait Hemophilia Mom: no Dad: no Muscular Dystrophy Mom: no Dad: no Cystic Fibrosis Mom: no Dad: no Tupman Chorea Mom: no Dad: no Mental Retardation Mom: no Dad: no Fragile X Mom: no Dad: no Other Genetic/Chromosomal Disorder Mom: no Dad: no Child w/other defect Mom: no Dad: no Enviromental Exposures Enviromental Exposures Reviewed Xray Exposure: no Medication, drug, or alcohol use since LMP: no Chemical/Other Exposure: no Exposure to Cat Liter: no Hx of Parvovirus (Fifth Disease): no Occupational Exposure to Children: none Active Medications (reviewed today): None Current Allergies (reviewed today): No known allergies Past History - Obstetrical History : 6 Medications and Allergies Allergies Allergy/AdvReac Type Severity Reaction Status Date / Time No Known Allergies Allergy Verified 02/14/19 11:58 Home Medications Medication Instructions Recorded Confirmed Last Taken Type Ibuprofen [Motrin 800 MG tab] 800 mg PO TID PRN #30 tablet 05/10/19 Unknown Rx Lidocain2.5%/Prilocai2.5% [Emla] 5 gm TP ONCE #1 tube 05/10/19 Unknown Rx Vitamin 1 tab PO DAILY 05/10/19 05/10/19 05/09/19 10:00 History oxyCODONE /ACETAMINOPHEN [Percocet 1 - 2 tab PO Q6HR PRN #20 tablet 05/10/19 Unknown Rx 5/325 mg] Docusate Sodium [Colace] 100 mg PO BID PRN #60 capsule 05/13/19 Unknown Rx Ferrous Sulfate [Feosol 325 MG tab] 325 mg PO BID #60 tablet 05/13/19 Unknown Rx - Physical Exam Breasts: Positive: deferred Cardiovascular: Regular rate Lungs: Positive: Clear to auscultation, Normal air movement Abdomen: Positive: normal appearance, soft, normal bowel sounds, other (Incision: c/d/i/). Negative: distention Uterus: Negative: tender Extremities: Positive: edema (2+) Deep Tendon Reflex Grade: Normal but brisk +3 (no clonus) Results Result Diagrams: 05/18/19 19:51 05/18/19 19:51 All other labs normal. Assessment and Plan - Patient Problems (1) Gestational hypertension Current Visit: Yes Status: Acute Plan to address problem: Intermittent SMITH, resolved with ibuprofen Plan of care explained, questions answered, she voiced understanding and agrees with plan of care
[2019-05-18] MEDS ORDERED: MAGNESIUM SULFATE 4 GM/100 ML BAG IV ONE (20:00)
[2019-05-18 20:25] LABS: Hematocrit 31.5 % (30.3-42.9); Hemoglobin 10.4 gm/dl (10.1-14.3); Mean Corpuscular HGB Conc 33 % (30-34); Mean Corpuscular Volume 84 fl (79-97); Platelet Count 305 K/mm3 (140-440); Red Blood Count 3.74 M/mm3 (3.65-5.03); Red Cell Distribution Width 16.4 % (13.2-15.2)
[2019-05-18 20:34] LABS: Alanine Aminotransferase 10 units/L (7-56); Uric Acid 6.3 mg/dL (3.5-7.6)
[2019-05-18 21:49] LABS: Bilirubin,Urine NEG (Negative); Blood,Urine NEG (Negative); Color,Urine Straw (Yellow); Mucus,Urine FEW /HPF; Protein,Urine <15 mg/dL mg/dL (Negative); Urobilinogen,Urine < 2.0 mg/dL (<2.0); WBC,Urine < 1.0 /HPF (0.0-6.0)
[2019-05-19] MEDS ORDERED: KETOROLAC 30 MG/1 ML INJ ONE ×2 (03:47→10:47)
[2019-05-19] MEDS ORDERED: ACETAMINOPHEN 500 MG TAB PO ONE (03:55)
[2019-05-19] MEDS ORDERED: IBUPROFEN 800 MG TAB PO ONE (05:52)
[2019-05-19] MEDS ORDERED: KETAMINE/STERILE WATER 50 MG/ML SYRINGE ONE (10:46)
--- NOTE | 2019-05-19 10:52 | Progress Note ---
Assessment and Plan Patient resting in bed, complaints - Patient Problems (1) Gestational hypertension Current Visit: Yes Status: Acute Subjective - Subjective Date of service: 05/19/19 Principal diagnosis: PP GHTN Interval history: Past History : 6 Term Births: 3 Premature Births: 0 Living Children: 3 Para: 3 Mult. Births: 0 Prev : 0 Prev. attempt? none Aborta: 2 Elect. Ab: 0 Spont. Ab: 2 Ectopics: 0 # 1 Delivery date: 06/12/2008 Weeks Gestation: 39 Delivery type: Hours of labor: 25 Anesthesia type: epidural Delivery location: [facility] Infant Sex: Female weight: [id number] Name: Naiila # 2 Delivery date: 05/06/2010 Delivery type: SAB # 3 Delivery date: 03/31/2011 Delivery type: Vaginal Delivery location: [facility] Sex: female weight: 6.19 Name: franck Comments: none # 4 Delivery date: 11/02/2011 Weeks Gestation: 4 Delivery type: SAB Delivery location: [facility] # 5 Delivery date: 06/28/2014 Weeks Gestation: 40 Delivery type: Vaginal Delivery location: [facility] Infant Sex: female weight: 6.63 # 6 Date of Delivery: 05/10/2019 Delivery Type: Gestation Weeks: 38 Gender: male Weight: 6.69 lbs Comment: NRFHT's Past Medical History: Reviewed history from 09/19/2011 and no changes required: Recurrent Bartholins cyst Past Surgical History: Past Medical History Abnormal PAP: negative HAYDE Exposure: negative Infertility: negative Uterine Anomaly: negative Uterine Surgery (not C/S): negative Other Gynecologic Problems: negative Family Hx: Family History of Hypertension- mother No Family History of Breast Cancer No Family History of Colon Cancer No Family History of Ovarvian Cancer No Family History of DVT/PE on OCP No Family History of Diabetes 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 of genital herpes: no Partner hx. of genital herpes: no Rash, Viral, or Febrile illness since last LMP? no Varicella/Chicken Pox Status: Previous Disease TB Risk: no Genetic History ADVANCED MATERNAL AGE Congenital Heart Defect: Mom: no Dad: no Maggi Disease: Mom: no Dad: no Thalassemia Mom: no Dad: no Neural Tube Defect Mom: no Dad: no Down's Syndrome Mom: no Dad: no Alfredo-Sachs Mom: no Dad: no Sickle Cell Disease/Trait Mom: yes Dad: no Comments: two children with trait Hemophilia Mom: no Dad: no Muscular Dystrophy Mom: no Dad: no Cystic Fibrosis Mom: no Dad: no Antolin Chorea Mom: no Dad: no Mental Retardation Mom: no Dad: no Fragile X Mom: no Dad: no Other Genetic/Chromosomal Disorder Mom: no Dad: no Child w/other defect Mom: no Dad: no Enviromental Exposures Enviromental Exposures Reviewed Xray Exposure: no Medication, drug, or alcohol use since LMP: no Chemical/Other Exposure: no Exposure to Cat Liter: no Hx of Parvovirus (Fifth Disease): no Occupational Exposure to Children: none Active Medications (reviewed today): None Current Allergies (reviewed today): No known allergies Objective - Vital Signs Latest vital signs: Vital Signs Temp Pulse Resp BP BP Pulse Ox 05/19/19 10:46 78 127/80 99 05/19/19 10:41 80 99 05/19/19 10:36 76 100 05/19/19 10:31 73 100 05/19/19 10:26 83 99 05/19/19 10:21 85 99 05/19/19 10:16 78 99 05/19/19 10:11 76 99 05/19/19 10:06 75 99 05/19/19 10:01 69 99 05/19/19 09:56 75 99 05/19/19 09:51 76 98 05/19/19 09:46 71 121/71 99 05/19/19 09:41 71 99 05/19/19 09:36 71 99 05/19/19 09:31 65 98 05/19/19 09:26 76 99 05/19/19 09:21 67 99 05/19/19 09:16 65 98 05/19/19 09:11 68 99 05/19/19 09:06 66 99 05/19/19 09:01 73 99 05/19/19 08:56 68 99 05/19/19 08:51 65 98 05/19/19 08:46 66 131/75 99 05/19/19 08:41 67 98 05/19/19 08:36 69 98 05/19/19 08:31 66 98 05/19/19 08:26 68 98 05/19/19 08:21 69 98 05/19/19 08:16 69 98 05/19/19 08:11 69 98 05/19/19 08:06 72 99 05/19/19 08:01 72 98 05/19/19 07:56 74 98 05/19/19 07:51 70 98 05/19/19 07:46 78 123/76 96 05/19/19 07:41 76 97 05/19/19 07:36 69 98 05/19/19 07:31 71 134/80 98 05/19/19 07:26 72 97 05/19/19 07:21 79 97 05/19/19 07:16 71 128/75 96 05/19/19 07:11 71 97 05/19/19 07:06 73 98 05/19/19 07:01 74 135/80 97 05/19/19 06:56 72 97 05/19/19 06:54 53 L 93 05/19/19 06:51 71 97 05/19/19 06:46 72 133/77 97 05/19/19 06:45 97.7 F 18 97 05/19/19 06:41 75 97 05/19/19 06:36 72 97 05/19/19 06:31 72 128/76 97 05/19/19 06:26 72 97 05/19/19 06:21 71 97 05/19/19 06:16 72 128/76 97 05/19/19 06:11 73 97 05/19/19 06:06 72 98 05/19/19 06:01 71 126/77 97 05/19/19 05:56 71 97 05/19/19 05:51 70 98 05/19/19 05:46 68 123/74 98 05/19/19 05:41 67 99 05/19/19 05:36 69 100 05/19/19 05:31 66 132/86 98 05/19/19 05:26 65 98 05/19/19 05:21 73 98 05/19/19 05:16 72 126/81 98 05/19/19 05:11 65 98 05/19/19 05:06 71 98 05/19/19 05:01 74 123/75 98 05/19/19 04:56 75 98 10/13/19 04:51 77 99 05/19/19 04:46 66 125/79 99 05/19/19 04:41 66 98 05/19/19 04:36 64 98 05/19/19 04:31 64 127/79 98 05/19/19 04:26 66 98 05/19/19 04:21 66 98 05/19/19 04:16 65 127/79 98 05/19/19 04:11 66 98 05/19/19 04:06 65 98 05/19/19 04:01 63 129/78 99 05/19/19 03:56 65 99 05/19/19 03:51 65 98 05/19/19 03:46 69 133/76 99 05/19/19 03:41 70 98 05/19/19 03:36 68 98 05/19/19 03:31 73 133/76 98 05/19/19 03:27 97.9 F 20 98 05/19/19 03:26 68 98 05/19/19 03:24 67 130/73 05/19/19 03:21 67 98 05/19/19 03:16 66 98 05/19/19 03:11 68 97 05/19/19 03:06 62 97 05/19/19 03:01 64 128/74 97 05/19/19 02:56 63 97 05/19/19 02:51 63 97 05/19/19 02:46 61 137/75 97 05/19/19 02:41 64 97 05/19/19 02:36 62 98 05/19/19 02:31 63 123/73 97 05/19/19 02:26 64 97 05/19/19 02:21 64 97 05/19/19 02:16 63 132/76 97 05/19/19 02:11 64 97 05/19/19 02:06 67 98 05/19/19 02:01 61 122/73 97 05/19/19 01:56 73 97 05/19/19 01:51 72 96 05/19/19 01:46 62 130/74 97 05/19/19 01:41 62 97 05/19/19 01:36 62 97 05/19/19 01:31 63 137/77 98 05/19/19 01:30 97.5 F L 16 98 05/19/19 01:26 62 97 10/13/19 01:21 61 97 05/19/19 01:16 64 131/72 97 05/19/19 01:11 60 97 05/19/19 01:06 61 99 05/19/19 01:01 61 132/74 97 05/19/19 00:56 64 97 05/19/19 00:51 60 97 05/19/19 00:46 66 127/72 97 05/19/19 00:41 65 97 05/19/19 00:36 62 97 05/19/19 00:31 67 140/78 97 05/19/19 00:26 65 97 05/19/19 00:21 68 98 05/19/19 00:16 63 140/81 98 05/19/19 00:11 64 98 05/19/19 00:06 64 97 05/19/19 00:01 63 136/76 97 05/18/19 23:56 59 L 98 05/18/19 23:51 60 97 05/18/19 23:46 59 L 135/74 98 05/18/19 23:41 61 98 05/18/19 23:36 58 L 98 05/18/19 23:35 97.6 F 05/18/19 23:31 58 L 135/77 98 05/18/19 23:26 58 L 99 05/18/19 23:21 58 L 99 05/18/19 23:16 58 L 136/84 99 05/18/19 23:11 58 L 99 05/18/19 23:06 58 L 99 05/18/19 23:01 60 133/84 99 05/18/19 22:56 60 98 05/18/19 22:51 62 98 05/18/19 22:46 62 131/79 98 05/18/19 22:41 60 99 05/18/19 22:36 65 97 05/18/19 22:31 68 128/80 99 05/18/19 22:26 64 99 05/18/19 22:21 63 97 05/18/19 22:16 62 133/73 98 05/18/19 22:11 61 97 05/18/19 22:06 58 L 98 05/18/19 22:01 58 L 134/74 97 05/18/19 21:56 56 L 97 05/18/19 21:51 56 L 98 05/18/19 21:46 56 L 142/78 99 05/18/19 21:41 56 L 98 05/18/19 21:36 57 L 98 05/18/19 21:31 56 L 143/66 98 05/18/19 21:30 97.7 F 05/18/19 21:26 59 L 99 05/18/19 21:21 61 98 05/18/19 21:16 56 L 139/64 99 05/18/19 21:11 57 L 99 05/18/19 21:06 57 L 98 05/18/19 21:01 60 146/58 98 05/18/19 20:56 64 98 05/18/19 20:51 59 L 98 05/18/19 20:46 58 L 143/66 98 05/18/19 20:41 60 98 05/18/19 20:36 59 L 98 05/18/19 20:31 54 L 165/89 99 05/18/19 20:26 54 L 99 05/18/19 20:21 56 L 100 05/18/19 20:16 55 L 144/77 100 05/18/19 20:11 57 L 99 05/18/19 20:10 58 L 149/71 05/18/19 20:06 60 99 05/18/19 20:01 60 99 05/18/19 20:00 65 93 05/18/19 19:56 59 L 99 05/18/19 19:51 56 L 99 05/18/19 19:35 98.0 F 60 24 156/77 98 Intake and Output 05/18/19 05/19/19 05/19/19 22:59 06:59 14:59 Intake Total 236 594 Output Total 1750 1800 1030 Balance -1514 -1206 -1030 Intake: Oral 236 594 Output: Urine 1750 1800 1030 Indwelling Catheter 1200 1800 1030 Void 550 Other: Total, Intake Amount 236 236 Total, Output Amount 300 300 300 # Voids Void 1 Weight 97.069 kg - Labs Labs: Abnormal lab results 05/18/19 05/18/19 05/19/19 Range/Units 19:51 19:51 03:11 RDW 16.4 H (13.2-15.2) % Creatinine 0.6 L (0.7-1.2) mg/dL Magnesium 5.40 H (1.7-2.3) mg/dL Lactate Dehydrogenase 275 H (91-180) units/L 05/19/19 Range/Units 09:04 RDW (13.2-15.2) % Creatinine (0.7-1.2) mg/dL Magnesium 6.20 H (1.7-2.3) mg/dL Lactate Dehydrogenase (91-180) units/L
[2019-05-19] MEDS ORDERED: IBUPROFEN 800 MG TAB PO PRN (15:36)
[2019-05-19] MEDS ORDERED: MAGNESIUM SULFATE 40GM/1000ML 40 GM/1,000 ML BAG IV ONE (16:54)
[2019-05-19] MEDS ORDERED: MAGNESIUM SULFATE 40GM/1000ML 40 GM/1,000 ML BAG IV SCH (17:00)
--- NOTE | 2019-05-20 07:29 | Discharge Summary ---
Providers - Providers Date of Admission: 05/18/19 19:00 Date of discharge: 05/20/19 (pt desires d/c ) Attending physician: LILY ROOT Primary care physician: LILY ROOT Hospitalization Reason for admission: PP elevated blood pressure; received MGSO4; d/c home not on meds Condition: Good Hospital course: responded well to rest and MGSO4. BP improved Now normo tensive Disposition: DC-01 TO HOME OR SELFCARE - Discharge Diagnoses (1) Gestational hypertension Status: Acute Qualifiers: Trimester: unspecified trimester Qualified Code(s): O13.9 - Gestational [-induced] hypertension without significant proteinuria, unspecified trimester Comment: RTO Monday for postop and BP check Core Measure Documentation - Palliative Care Palliative Care/ Comfort Measures: Not Applicable - Core Measures Any of the following diagnoses?: none - VTE Discharge Requirements Deep Vein Thrombosis/Pulmonary Embolism Present on Admission: No Has pt received <5 days of overlap therapy or INR<2.0: No Anticoagulant overlap therapy prescribed at discharge: No Contraindication No Overlap Therapy order at DC: Not Indicated - Acute IA Discharge Requirements Aspirin at discharge: No Reason for no aspirin on DC: Medical contraindication BRIAN/ARB for LVSD if EF <40%: Not Applicable Reason for no BRIAN/ARB: Medical contraindication Beta myranda at discharge: No Reason for no beta myranda on DC: Medical contraindication Statin for LDL = or >100 mg/dl on DC: Not Applicable Reason for no statin on DC: Medical contraindication - Heart Failure Discharge Requirements BRIAN/ARB for LVSD if EF <40%: Not Applicable Reason for no BRIAN/ARB: Medical contraindication Beta myranda at discharge: No Reason for no beta myranda on DC: Medical contraindication - Stroke Discharge Requirements Statin for LDL = or >70 mg/dl on DC: Not Applicable Reason for no statin on DC: Not Indicated Anticoag for atrial fib/atrial flutter: Not Applicable Reason for no anticoag for AF/F on DC: Not Indicated Antithrombotic for ischemic stroke: No Reason for no antithrombotic on DC: Not Indicated Exam - Constitutional Vitals: Temp Pulse Resp BP Pulse Ox 98.3 F 61 20 121/75 99 05/20/19 04:25 05/20/19 04:25 05/20/19 04:25 05/20/19 04:25 05/20/19 04:25 General appearance: Present: no acute distress, well-nourished - EENT Eyes: Present: PERRL ENT: hearing intact, clear oral mucosa - Neck Neck: Present: supple, normal ROM - Respiratory Respiratory effort: normal Respiratory: bilateral: CTA - Cardiovascular Heart Sounds: Present: S1 & S2. Absent: rub, click - Extremities Extremities: pulses symmetrical, No edema Peripheral Pulses: within normal limits - Abdominal General gastrointestinal: Present: soft, non-tender, non-distended, normal bowel sounds Female genitourinary: Present: normal - Rectal Rectal Exam: deferred - Integumentary Integumentary: Present: clear, warm, dry - Musculoskeletal Musculoskeletal: gait normal, strength equal bilaterally - Neurologic Neurologic: CNII-XII intact, moves all extremities Plan Activity: advance as tolerated Diet: low salt Wound: keep clean and dry Follow up with: LILY ROOT MD [Primary Care Provider] - 05/24/19 9:15 am (Please call with any headache, not relieved with Tylenol, blurred vision, chest pain. Keep your appointment for Monday05-24-19 at 9:15am. You will receive a call about rescheduling the circumcision for your son.. Call with any concerns. [phone].)
[2019-05-20] MEDS ORDERED: LABETALOL 100 MG TAB PO SCH ×2 (09:00→10:00)
[2019-05-20 12:12] VITALS: BP 148/84
== END 2019-05-20 12:30 | disposition home or self-care (01) ==
LOC: 3A 18:46 → UNDOADMIN 18:46 → LD 19:00 → INTOOBSV 19:00 → LD 19:49 → OB 05-19 20:38
PROVIDERS: ADMIT Obstetrics & Gynecology; ATTEND Obstetrics & Gynecology
DX: O13.9 Gestational [pregnancy-induced] hypertension without significant proteinuria, unspecified trimester (principal); Z98.891 History of uterine scar from previous surgery; Z3A.00 Weeks of gestation of pregnancy not specified
CPT/HCPCS: 36415; 81001; 82565; 83615; 83735; 84450; 84460; 84550; 85027; G0378; G0379; J1885; J3475; J7120; 96365; 96366